=== PATIENT | male | born 1970 | race Hispanic/Latino ===

== ENCOUNTER 2023-09-18 11:10 | Emergency (ER) | payer BC ==
[~2023-09-18] VITALS: Ht 185.4 cm; Wt 167.8 kg
[2023-09-18 12:27] VITALS: BP 176/99; PULSE 70; RESP 16; O2SAT 97
== END 2023-09-18 14:55 | disposition home or self-care (01) ==
LOC: EDH 11:10
DX: I83.92 Asymptomatic varicose veins of left lower extremity (principal); I10 Essential (primary) hypertension
CPT/HCPCS: 99281